=== PATIENT | female | born 2005 | race Caucasian/White ===

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

== ENCOUNTER → 2025-07-19 11:38 | Outpatient (CLI) | payer OTHER, SELFPAY ==
[2025-07-19 13:15] LABS: Ferritin 10 ng/mL (6-137)
== END ==
PROVIDERS: PCP Nurse Practitioner Family; Referring Provider Nurse Practitioner Family; Visit Provider Nurse Practitioner Family
DX: R79.89 Other specified abnormal findings of blood chemistry (principal)
CPT/HCPCS: 36415; 82728

== ENCOUNTER 2025-08-04 19:06 | Emergency (ER) | payer OTHER, SELFPAY ==
[2025-08-04 19:22] VITALS: BP 137/93; PULSE 80; RESP 15; TEMP 37.6; O2SAT 100; BMI 24.5
[2025-08-04 20:15] LABS: COVID-19 CEPHEID 4-PLEX PCR Negative (Negative); Influenza A - CEPHEID Flu A NEGATIVE (NEGATIVE); Influenza B - CEPHEID Flu B NEGATIVE (NEGATIVE)
== END 2025-08-04 20:33 | disposition left against medical advice (07) ==
PROVIDERS: Emergency Provider Emergency Medicine; PCP Nurse Practitioner Family
DX: Z53.21 Procedure and treatment not carried out due to patient leaving prior to being seen by health care provider (principal)
CPT/HCPCS: 87637; 99281